=== PATIENT | male | born 1965 | race African-American/Black ===

== ENCOUNTER 2016-09-24 14:56 | Emergency (ER) | payer OTHER ==
[~2016-09-24] VITALS: Ht 182.9 cm; Wt 115.0 kg
[2016-09-24 14:57] VITALS: BP 118/78
[2016-09-24] MEDS ORDERED: METF500T4 PO (15:00)
== END 2016-09-24 15:43 | disposition left against medical advice (07) ==
LOC: ER 15:12
DX: R07.9 Chest pain, unspecified (principal); Z53.21 Procedure and treatment not carried out due to patient leaving prior to being seen by health care provider